=== PATIENT | female | born 1985 | race Caucasian/White ===

== ENCOUNTER 2017-01-08 01:00 | Emergency (ER) | payer MEDICAID ==
--- NOTE | ~2017-01-08 | ER ---
PATIENT'S NAME: JOI [facility] AGE: 31 Y [address] ROOM: [place] [address] LOCATION: ED ADMIT DATE: 01/08/2017 ER/Outpatient Report DISCHARGE DATE: 01/08/2017 FAMILY PHYSICIAN: Starr Irwin MD ATTENDING PHYSICIAN: Jenaro Wakefield Admission date and time documented in the medical record. I saw the patient at 0115 hours. CHIEF COMPLAINT: Mid upper abdominal pain. HISTORY OF PRESENT ILLNESS: The patient is a 31-year-old female, who comes in with acute onset of mid upper abdominal pain around 2330 hours. She has been having multiple episodes of vomiting over the past 2 days as well as multiple episodes of diarrhea over the past 2 days. She had some questionable blood in her stool. She had a stool study done through the clinic, results are pending. However, preliminary studies all have been normal according to the patient. He has not vomited any blood. 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 She has had a cholecystectomy, tubal ligation, and 2 C-sections. She did have a fever earlier, but none tonight. No chills or sweats. No headache, eyes, ears, nose, throat, neck, or spine pain. No lightheadedness, dizziness, syncope, or near syncope. No back pain. No urinary symptomatology. No joint or muscle swelling, redness, or pain. No skin eruptions or rash. No history of endocrine problems or neuro changes. Psych issues include depression and anxiety. She had some questionable pseudotumor cerebri. HOME MEDICATIONS: See attached medication list. ALLERGIES: MORPHINE SULFATE AND CITRUS MEDICATIONS. SOCIAL HISTORY: Nonsmoker over the past 3 days. Occasional intake of alcohol. SIGNIFICANT PAST MEDICAL HISTORY: Hypertension, exogenous obesity, remote tobacco abuse, gastroesophageal reflux, depression, anxiety, headaches, pseudotumor cerebri. OPERATIONS: Tubal ligation, cholecystectomy, Mike-en-Y bypass surgery, and x2. PATIENT'S NAME: JOI [facility] AGE: 31 Y [address] ROOM: [place] [address] LOCATION: ED ADMIT DATE: 01/08/2017 ER/Outpatient Report DISCHARGE DATE: 01/08/2017 FAMILY PHYSICIAN: Starr Irwin MD ATTENDING PHYSICIAN: Jenaro Wakefield REVIEW OF SYSTEMS: All systems reviewed by me are negative with exception of those discussed in the history of the present illness. PHYSICAL EXAMINATION: VITAL SIGNS: Temperature 97.5, tympanic; pulse 119; respirations 16; blood pressure 149/86; O2 saturation on room air is 99%. HEAD: Normocephalic. EYES, EARS, NOSE, THROAT: Clear. Mucous membranes are moist. NECK: Negative. LUNGS: Clear. No rales, rhonchi, or wheezes. HEART: Regular. Pulses are palpable. No chest wall or ribcage pain to palpation. ABDOMEN: Soft. Some epigastric pain to palpation. No true guarding or rigidity. No rebound tenderness. Active bowel tones. No organomegaly or abnormal masses palpable. No CVA tenderness. EXTREMITIES: Intact. NEUROVASCULAR: Intact. SKIN: Clear. No skin eruptions or rash. DIAGNOSTIC DATA: EKG showed sinus rhythm. Some diffuse ST-T changes. No acute elevation. Urine showed 5-10 whites, 2-5 reds, 2-5 epithelial cells, moderate bacteria, 2+ mucus, calcium oxalate crystals, rare hyaline casts, positive nitrites on dipstick. Culture pending. Two blood cultures are drawn, results are pending. D-dimer is elevated at 0.9. CMS was normal except for a low potassium of 3.6, high chloride 111, low CO2 content of 16, elevated glucose 125, elevated AST of 43. Amylase and lipase were normal. CPK was normal at 74, CK-MB was less than 0.05. Troponin was less than 0.04. CRP was 1.76. White count was 9400, 73 segs, 20 lymphs, 6 monos, 2 eos. Hemoglobin is 10.1 with hematocrit 33.7, platelet count is 251,000. Sedimentation rate was 42. Lactate was 1.2. Procalcitonin was less than 0.05. IMAGING: CT scan of the chest with PE protocol showed no evidence of pulmonary embolism. No mediastinal changes, no infiltrate, no other abnormalities. CT scan of the abdomen and pelvis showed fluid filled colon. No obstruction, no focal inflammation. She did have a cystic mass on the right ovary measuring up to 5.3 cm, similar smaller structure was present previously. Neoplasm unlikely. No free air or free fluid. No obstruction, no hydronephrosis or renal changes. No biliary changes. Normal bladder. CT scan was read by Radiology, see dictated transcribed report. IMPRESSION: 1. Mid upper abdominal pain radiating through to her back. Etiology PATIENT'S NAME: [facility]I [facility] AGE: 31 Y [address] ROOM: [place] [address] LOCATION: [facility] ADMIT DATE: 01/08/2017 ER/Outpatient Report DISCHARGE DATE: 01/08/2017 FAMILY PHYSICIAN: Starr Irwin MD ATTENDING PHYSICIAN: Jenaro Wakefield uncertain. The patient does have a history of Mkie-en-Y bypass procedure for obesity. She has no evidence of infection process, obstruction, or perforation. No evidence of aneurysms. No biliary or renal abnormalities. 2. A 5 cm mass, left ovary. It has appearance of a benign functional hemorrhagic cyst. The patient is having no pain in her pelvis. 3. Hypertension. 4. Exogenous obesity. 5. Remote tobacco abuse. 6. Gastroesophageal reflux. 7. Depression and anxiety. PLAN: The patient was given IV normal saline, fluids, IV Zofran for nausea, IV Dilaudid for pain. Dismissed home. Clear liquid diet for 24 hours. Observation. Activity as tolerated. Continue present home medications and care. Bentyl 20 mg 4 times a day for 3 days, Zofran 4 mg ODT as needed for nausea and vomiting, [place] 7.5/325 as needed for pain. Follow up with personal physician as scheduled on . Discussion ensued with the patient concerning my findings and recommendations, she understands. JENARO WAKEFIELD MD SDS/modl /[id number] d: 01/08/17 045 t: 01/08/171810, OUTPATIENT REPORT
[2017-01-08 01:48] LABS: BASOPHIL % 0.2 %; EOSINOPHIL # 0.2 K/uL (0.0-0.5); EOSINOPHIL % 1.6 %; HEMATOCRIT 33.7 % (33.0-46.0); HEMOGLOBIN 10.1 g/dL (11.0-15.0); IMMATURE GRANULOCYTE % 0.2 %; LYMPHOCYTE # 1.8 K/uL (0.8-4.0); LYMPHOCYTE % 19.5 %; MCH 23.8 pg (27.0-34.0); MCV 79.5 fl (83.0-98.0); MONOCYTE # 0.5 K/uL (0.0-1.0); MONOCYTE % 5.5 %; MPV 10.5 fl (9.4-12.4); NEUTROPHIL # (ANC) 6.8 K/uL (1.8-7.8); NRBC % 0 /100WBC (0-0.00); PLATELET COUNT 251 K/uL (150-450); RBC 4.24 M/uL (3.50-5.00); RDW-CV 14.8 % (11.9-14.6); WBC 9.4 K/uL (4.0-11.0)
[2017-01-08 02:07] LABS: ALBUMIN 3.4 gm/dL (3.5-5.0); ALK PHOS 108 IU/L (33-138); ALT 32 IU/L (12-78); AST 43 IU/L (10-40); BLOOD UREA NITROGEN 8 mg/dL (6-24); CALCIUM 8.7 mg/dL (8.5-10.5); CHLORIDE 111 mMol/L (96-110); CPK 74 IU/L (21-215); CREATININE 0.9 mg/dL (0.5-1.1); ESTIMATED GFR (MDRD EQUATION) > 60; POTASSIUM 3.6 mMol/L (3.7-5.1); SODIUM 141 mMol/L (135-145); TOTAL BILIRUBIN 0.3 mg/dL (0.0-1.5); TOTAL PROTEIN 7.4 g/dL (6.0-8.4)
[2017-01-08 02:08] LABS: BLOOD URINE 10 /UL (NEGATIVE); COLOR URINE YELLOW (YELLOW); GLUCOSE URINE NEGATIVE (NEGATIVE); KETONE URINE 5 mg/dL (NEGATIVE); LEUKOCYTES URINE 25 /UL (NEGATIVE); NITRITE URINE POSITIVE (NEGATIVE); PROTEIN URINE 100 mg/dL (NEGATIVE); TURBIDITY URINE 1+ (CLEAR); UROBILINOGEN URINE 4 mg/dL (NORMAL)
[2017-01-08 02:19] LABS: ANION GAP 17.6 (10.0-19.0); CO2 16 mMol/L (22-32)
[2017-01-08 02:30] LABS: BACTERIA URINE MODERATE (NEGATIVE); CRYSTALS URINE CALCIUM OXALATE (NEGATIVE); HYALINE CAST URINE RARE #/LPF (NEGATIVE); MUCUS URINE 2+ (NEGATIVE)
[2017-01-09] MEDS ORDERED: NORCO 7.5-3251 EACH PO (15:43)
[2017-01-09] MEDS ORDERED: RECLIPSEN 28 D1 EACH PO (15:43)
[2017-01-09] MEDS ORDERED: FLONASE 50 MCG/16 GM NOSE (15:44)
[2017-01-09] MEDS ORDERED: FLEXERIL10 MG PO (15:44)
[2017-01-09] MEDS ORDERED: PROAIR HFA8.5 GM INH (15:45)
[2017-01-09] MEDS ORDERED: STOOL SOFTENER1 EAC2 PO (15:45)
[2017-01-09] MEDS ORDERED: SYMBICORT 16010.2 GM INH (15:46)
[2017-01-09] MEDS ORDERED: ZANTAC150 MG PO (15:46)
[2017-01-09] MEDS ORDERED: WELLBUTRIN XL300 M1 PO (15:46)
[2017-01-09] MEDS ORDERED: ZOFRAN4 MG PO (15:47)
[2017-01-09] MEDS ORDERED: ZYRTEC10 MG PO (15:47)
[2017-01-09] MEDS ORDERED: DICYCLOMINE HCL20 MG PO (15:49)
== END 2017-01-08 03:57 | disposition disaster alternative care site (69) ==
LOC: GMED 01:00
PROVIDERS: Emergency Medicine
DX: R10.13 Epigastric pain (principal); N83.9 Noninflammatory disorder of ovary, fallopian tube and broad ligament, unspecified; I10 Essential (primary) hypertension; E66.9 Obesity, unspecified; K21.9 Gastro-esophageal reflux disease without esophagitis; F32.9 Major depressive disorder, single episode, unspecified; F41.9 Anxiety disorder, unspecified; Z88.5 Allergy status to narcotic agent; Z88.8 Allergy status to other drugs, medicaments and biological substances; Z79.899 Other long term (current) drug therapy; Z90.49 Acquired absence of other specified parts of digestive tract
CPT/HCPCS: J1170; J2405; J7030; Q9967

== ENCOUNTER 2017-01-09 15:00 | Observation (INO) | payer MEDICAID ==
[~2017-01-09] VITALS: Ht 154.9 cm; Wt 95.3 kg
[2017-01-09] MEDS ORDERED: RECLIPSEN 28 D1 EACH PO (15:43)
[2017-01-09] MEDS ORDERED: NORCO 7.5-3251 EACH PO (15:43)
[2017-01-09] MEDS ORDERED: FLEXERIL10 MG PO (15:44)
[2017-01-09] MEDS ORDERED: FLONASE 50 MCG/16 GM NOSE (15:44)
[2017-01-09] MEDS ORDERED: PROAIR HFA8.5 GM INH (15:45)
[2017-01-09] MEDS ORDERED: STOOL SOFTENER1 EAC2 PO (15:45)
[2017-01-09] MEDS ORDERED: ZANTAC150 MG PO (15:46)
[2017-01-09] MEDS ORDERED: WELLBUTRIN XL300 M1 PO (15:46)
[2017-01-09] MEDS ORDERED: SYMBICORT 16010.2 GM INH (15:46)
[2017-01-09] MEDS ORDERED: ZOFRAN4 MG PO (15:47)
[2017-01-09] MEDS ORDERED: ZYRTEC10 MG PO (15:47)
[2017-01-09] MEDS ORDERED: DICYCLOMINE HCL20 MG PO (15:49)
--- NOTE | 2017-01-09 17:30 | NUR ---
ADMISSION: Pt. admitted from clinic with gastroenteritis. Has had nausea, vomiting, and severe diarrhea since yesterday. Hx of pseudotumor in brain, x2, and gastric bypass surgery in 2014. 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 Irwin. Admits with and children. States she has had no medications since yesterday and cannot keep anything down. Cooperative with admission process. Oriented to unit and VN program. Report given to primary RNElla.
[2017-01-09 19:11] LABS: BASOPHIL % 0.2 %; EOSINOPHIL # 0.1 K/uL (0.0-0.5); EOSINOPHIL % 1.8 %; HEMATOCRIT 29.5 % (33.0-46.0); HEMOGLOBIN 8.7 g/dL (11.0-15.0); IMMATURE GRANULOCYTE % 0.2 %; LYMPHOCYTE # 2.2 K/uL (0.8-4.0); LYMPHOCYTE % 39.4 %; MCH 23.7 pg (27.0-34.0); MCHC 29.5 gm/dL (32.0-36.5); MCV 80.4 fl (83.0-98.0); MONOCYTE # 0.5 K/uL (0.0-1.0); MONOCYTE % 8.2 %; MPV 10.3 fl (9.4-12.4); NEUTROPHIL # (ANC) 2.8 K/uL (1.8-7.8); NEUTROPHIL % 50.2 %; NRBC % 0 /100WBC (0-0.00); PLATELET COUNT 215 K/uL (150-450); RBC 3.67 M/uL (3.50-5.00); RDW-CV 14.7 % (11.9-14.6); WBC 5.5 K/uL (4.0-11.0)
[2017-01-09 19:29] LABS: ANION GAP 13.4 (10.0-19.0); BLOOD UREA NITROGEN 11 mg/dL (6-24); CALCIUM 7.5 mg/dL (8.5-10.5); CHLORIDE 113 mMol/L (96-110); CO2 19 mMol/L (22-32); CREATININE 0.7 mg/dL (0.5-1.1); ESTIMATED GFR (MDRD EQUATION) > 60; POTASSIUM 3.4 mMol/L (3.7-5.1); SODIUM 142 mMol/L (135-145)
--- NOTE | 2017-01-09 19:31 | NUR ---
PATIENTS HYDROCODONE TABLETS SENT HOME WITH PATIENTS
--- NOTE | 2017-01-10 04:54 | NUR ---
Significant Event: Patient is alert and oriented x 4. [place] was given at 1838, 220, and 0435 x1 tab. Dilaudid given at 2055 with zofran. VS WNL on RA. Remains NPO. All stool need to be hemotested. No BM's this shift. Ambulates with stand by assist. IV to left upper arm with fluids running. Continues to complain of frontal lobe throbbing headache and nausea. Coorperative with cares. Follow up:
[2017-01-10 05:22] LABS: BASOPHIL % 0.5 %; EOSINOPHIL # 0.1 K/uL (0.0-0.5); EOSINOPHIL % 2.5 %; HEMATOCRIT 29.3 % (33.0-46.0); HEMOGLOBIN 8.8 g/dL (11.0-15.0); IMMATURE GRANULOCYTE % 0.2 %; LYMPHOCYTE % 48.5 %; MCH 23.7 pg (27.0-34.0); MONOCYTE # 0.4 K/uL (0.0-1.0); MONOCYTE % 10.1 %; MPV 10.3 fl (9.4-12.4); NEUTROPHIL # (ANC) 1.5 K/uL (1.8-7.8); NEUTROPHIL % 38.2 %; NRBC % 0 /100WBC (0-0.00); PLATELET COUNT 180 K/uL (150-450); RBC 3.71 M/uL (3.50-5.00); RDW-CV 14.7 % (11.9-14.6)
[2017-01-10 05:29] LABS: ANION GAP 12.3 (10.0-19.0); BLOOD UREA NITROGEN 8 mg/dL (6-24); CHLORIDE 114 mMol/L (96-110); CO2 20 mMol/L (22-32); CREATININE 0.6 mg/dL (0.5-1.1); ESTIMATED GFR (MDRD EQUATION) > 60; POTASSIUM 3.3 mMol/L (3.7-5.1); SODIUM 143 mMol/L (135-145)
[2017-01-10] MEDS ORDERED: IRON325 M1 PO (09:47)
--- NOTE | 2017-01-10 13:53 | NUR ---
D:Orders received for patient to be dismissed. I:Dismissal instructions were prepared and reviewed with the patient and her spouse. The following instructions were reviewed:diet and activity recommendations for home, abnormal s/s of monitor for and to report to MD if they occur, home medications/new prescription medications, and plans for follow up appointment with Dr. Irwin in 4 weeks. Lon teaching given to patient and reviewed with patient on the following topics: Iron, Preventing DVT's. The patient was given a note for work for 01/10-01/11. R:The patient verbalized understanding of the above teaching and denied further questions at this time. P:The primary nurse, Nadira PRITCHETT, was informed that the dismissal teaching had been completed. The patient will be dismissed later this afternoon. Ivelisse VERDUGO
--- NOTE | 2017-01-10 15:55 | NUR ---
Significant Event: Pt c/o intermittent severe headache when she sits up. Tearful and anxious at times. Dilaudid IV x1 and norco given x1 with partial relief. Tolerated full liquids, c/o intermittent nausea, Zofran IV given x1. Dc to home at 1400. States understanding of all dc instructions. Follow up:
== END 2017-01-10 14:00 | disposition disaster alternative care site (69) ==
LOC: GMSU 15:15
PROVIDERS: ADMIT Family Medicine
DX: A08.4 Viral intestinal infection, unspecified (principal); R11.2 Nausea with vomiting, unspecified; R19.7 Diarrhea, unspecified; E86.0 Dehydration; D50.9 Iron deficiency anemia, unspecified; E87.6 Hypokalemia; E66.9 Obesity, unspecified; Z87.891 Personal history of nicotine dependence; G47.33 Obstructive sleep apnea (adult) (pediatric); Z98.84 Bariatric surgery status; Z79.51 Long term (current) use of inhaled steroids; Z79.899 Other long term (current) drug therapy
CPT/HCPCS: G0378; G0379; J1170; J2405; J3480; J7030